=== PATIENT | female | born 1950 | race Caucasian/White ===

== ENCOUNTER 2025-07-06 12:03 | Outpatient (CLI) | payer MEDICARE ==
--- NOTE | 2025-07-06 15:21 | RADIOLOGY REPORT ---
PROCEDURE: MR MRI LUMBAR SPINE INDICATION: SPONDYLOSIS W/O MYELOPATHY OR RADICULOPATHY, LUMBAR REGION Exam Date: 07/06/2025 12:06 PM COMPARISON: None TECHNIQUE: MRI lumbar spine without intravenous contrast. FINDINGS: Grade 1 retrolisthesis of T12 on L1 and L1 on L2. Grade 1 anterolisthesis of L4 on L5. There are de generative endplate changes including modic endplate changes with anterior and lateral osteophytes th roughout the lumbar spine. The visualized distal spinal cord and conus medullaris are within normal l imits. The conus medullaris appears to terminate within normal limits. The visualized retroperitone al and paraspinal soft tissues are unremarkable. The following axial levels are detailed below: T12-L1: There is a moderate circumferential disc bulge complicated by facet arthropathy associated w ith moderate right neuroforaminal stenosis. No significant central canal stenosis. L1-L2: There is a moderate circumferential disc bulge complicated by facet arthropathy associated w ith mild to moderate bilateral neuroforaminal stenosis. No significant central canal stenosis. L2-L3: There is a moderate circumferential disc bulge complicated by facet arthropathy associated w ith mild to moderate right neuroforaminal stenosis. No significant central canal stenosis. L3-L4: There is a moderate circumferential disc bulge complicated by facet arthropathy associated w ith mild to moderate left neuroforaminal stenosis. No significant central canal stenosis. L4-L5: There is a moderate circumferential disc bulge complicated by facet arthropathy associated w ith mild to moderate bilateral neuroforaminal stenosis. No significant central canal stenosis. L5-S1: Unremarkable. IMPRESSION: 1. Multilevel degenerative disease. Grade 1 retrolisthesis of T12 on L1 and L1 on L2. Grade 1 anterol isthesis of L4 on L5. No significant central canal stenosis. Neural foraminal stenosis as above. HS:Y
== END 2025-07-06 23:59 | disposition home or self-care (01) ==
LOC: MRI02 12:03
PROVIDERS: ATTEND Family Medicine Sports Medicine
DX: M51.369 Other intervertebral disc degeneration, lumbar region without mention of lumbar back pain or lower extremity pain (principal); M51.35 Other intervertebral disc degeneration, thoracolumbar region; M47.815 Spondylosis without myelopathy or radiculopathy, thoracolumbar region; M43.15 Spondylolisthesis, thoracolumbar region; M53.3 Sacrococcygeal disorders, not elsewhere classified; M77.9 Enthesopathy, unspecified; M25.561 Pain in right knee; M17.10 Unilateral primary osteoarthritis, unspecified knee; G89.29 Other chronic pain
CPT/HCPCS: 72148